=== PATIENT | male | born 2000 | race African-American/Black ===

== ENCOUNTER 2024-04-26 06:29 | Emergency (ER) | payer OTHER ==
[~2024-04-26] VITALS: Ht 182.9 cm; Wt 116.4 kg
[2024-04-26] MEDS: LIDOCAINE 1% MDV 20ML VIAL SC ONE (08:25)
[2024-04-26] MEDS ORDERED: CIPR-249 PO (08:38)
[2024-04-26 08:50] VITALS: BP 120/73; TEMP 98.5; O2SAT 99
== END 2024-04-26 09:14 | disposition home or self-care (01) ==
LOC: M ED 06:29
DX: S91.311A Laceration without foreign body, right foot, initial encounter (principal); W25.XXXA Contact with sharp glass, initial encounter; Y92.009 Unspecified place in unspecified non-institutional (private) residence as the place of occurrence of the external cause; Y93.89 Activity, other specified; Y99.9 Unspecified external cause status; Z79.2 Long term (current) use of antibiotics

== ENCOUNTER 2025-04-16 18:32 | Emergency (ER) | payer OTHER ==
[~2025-04-16] VITALS: Ht 182.9 cm; Wt 117.8 kg
[~2025-04-16 18:32] MED LIST: CIPR-249 PO
[2025-04-16 19:23] LABS: KETONE, URINE AUTO RFX NEGATIVE (NEGATIVE); LEUKOCYTE ESTERASE UR AUTO RFX NEGATIVE (NEGATIVE); MUCUS, URINE RFX SMALL (NEGATIVE); NITRITE, URINE AUTO RFX NEGATIVE (NEGATIVE); RBC, URINE AUTO RFX 3 /HPF (0-3); SQUAM EPITHELIAL CELL UR AURFX 0 /HPF (0-6); WBC, URINE AUTO RFX 2 /HPF (0-3)
[2025-04-17 00:01] VITALS: BP 157/81; TEMP 97.6; O2SAT 100
[2025-04-17 01:52] LABS: Trichomonas vaginalis (AMP) NOT DETECTED (NEGATIVE)
[2025-04-17 02:14] LABS: GC DNA AMPLIFICATION NEGATIVE (NEGATIVE)
[2025-04-17] MEDS ORDERED: BACT800T5 PO (02:51)
== END 2025-04-17 03:11 | disposition home or self-care (01) ==
LOC: M ED 18:32
DX: N30.00 Acute cystitis without hematuria (principal); Z79.2 Long term (current) use of antibiotics

== ENCOUNTER → 2025-06-25 | Outpatient (CLI) | payer OTHER ==
[~2025-06-25] MED LIST changes: +BACT800T5 PO
== END ==
LOC: M RAD 13:04
PROVIDERS: ATTEND Physician Assistant
DX: M51.26 Other intervertebral disc displacement, lumbar region (principal)